=== PATIENT | female | born 1950 | race American Indian/Alaskan Native ===

== ENCOUNTER 2022-09-25 12:22 | Emergency (ER) | payer MEDICARE, MEDICAID, SELFPAY ==
--- NOTE | ~2022-09-25 | XR_ITS ---
EXAMINATION: XR RIBS, LEFT CLINICAL INFORMATION: Fall pain COMPARISON: None available. TECHNIQUE: 3 views of the left ribs and PA view of the chest were obtained. FINDINGS: Lungs are clear. No consolidation, pneumothorax, or pleural effusion. Calcification of the dorsal aorta. The cardiomediastinal silhouette and pulmonary vasculature are otherwise normal. Osseous structures are unremarkable. Ribs are intact. No fractures are identified. 5 mm rounded calcification overlies the posterior medial aspect of the proximal humerus in the soft tissues. This could reflect calcific tendinitis of the biceps tendon or loose body displaced distally into the biceps tendon sheath. XR/XR ribs LT min 3V w CXR1V IMPRESSION: 1. No rib fracture. 2. No acute disease in the chest. 3. Calcific tendinitis of the biceps tendon versus loose body displaced distally into the biceps tendon sheath.
[2022-09-25 12:42] VITALS: BP 145/73; PULSE 72; RESP 17; TEMP 35.9; O2SAT 98; BMI 28.6
--- NOTE | 2022-09-25 12:42 | ED_ITS ---
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 Patient states that last week she slipped on some spilled oil and hit her left side. Patient denies any head strike or loss of consciousness. Patient denies any anti-coagulant use. Patient denies any dizziness, lightheadedness, abdominal pain, nausea, vomiting, fever, chills, blurry vision, double vision, loss of vision, chest pain, difficulty breathing, shortness of breath, back pain, night sweats, pain with urination, increased urinary frequency, increased urinary urgency, blood in her urine or stool, syncope or a near syncopal episode, bowel incontinence, bladder incontinence, bowel retention, bladder retention, or any other complaints at this time. MD complaint: fall Onset (ago): week(s) Fall from: standing Fall witnessed: yes, by family Place fall occurred: home Loss of consciousness: none Prolonged down time: no Related Data Allergies Allergy/AdvReac Type Severity Reaction Status Date / Time aspirin Allergy Mild Itching Verified 09/25/22 12:46 Review of Systems Constitutional: Constitutional: Reports no additional constitutional complaints, Denies chills, Denies fever(s) and Denies night sweats Eyes: Eyes: Reports no additional eye complaints, Denies blurry vision, Denies change in vision, Denies diplopia, Denies eye discharge, Denies loss of vision and Denies eye pain ENT: Denies dizziness Cardiovascular: Cardiovascular: Reports no additional cardiovascular complaints, Denies chest pain, Denies lightheadedness, Denies Loss of Consciousness and Denies dyspnea Comments: left rib pain Respiratory: Respiratory: Reports no additional respiratory complaints and Denies dyspnea Gastrointestinal: Gastrointestinal: Reports no additional gastrointestinal complaints, Denies abdominal pain, Denies melena, Denies hematochezia, Denies change in bowel habits and Denies change in stool character Genitourinary: Genitourinary: Denies hematuria, Denies urinary frequency, Denies dysuria, Denies urinary incontinence, Denies urinary hesitancy and Denies urinary urgency Musculoskeletal: Musculoskeletal: Reports no additional musculoskeletal complaints, Denies numbness and Denies tingling Neurologic: Denies dizziness, Denies loss of vision, Denies numbness and Denies tingling Psychiatric: Psychiatric: Reports no additional psychiatric complaints Endocrine: Endocrine: Reports no additional endocrine complaints Hematologic/Lymphatic: Hematologic/Lymphatic: Reports no additional hematologic/lymphatic complaints Allergic/Immunologic: Allergic/Immunologic: Reports no additional allergic/immunologic complaints PMFSH Past Medical History Attestation statement: The following information was validated with the patient. Source: old records reviewed and nursing notes reviewed Physical Exam Vital Signs: Vital Signs: Last Vital Signs Temp 96.6 F L 09/25/22 12:42 Pulse 72 09/25/22 12:42 Resp 17 09/25/22 12:42 BP 145/73 H 09/25/22 12:42 Pulse Ox 98 09/25/22 12:42 O2 Del Method Room Air 09/25/22 12:42 BMI result Body Mass Index 28.6 Const: General: cooperative, no acute distress, alert and awake Nutritional Appearance: well nourished Orientation/consciousness: patient oriented x3 Limitations: no limitations HEENT: Head: Yes normal to inspection and Yes atraumatic Ears: hearing grossly normal bilaterally and external ears normal General nose exam: Normal external nose present, no nasal discharge noted and no epistaxis Face and sinus: Yes normal facial exam, No abrasion and No laceration Mouth: Normal oral and palatal mucosa present, no drooling and no muffled voice Eyes: General: appearance normal, both eyes and all related structures Periorbital: periorbital findings normal Eyelids: Yes eyelids normal Conjunctivae: conjunctivae normal Pupils: Equal, round and reactive pupils present EOM: EOMs intact bilaterally Neck: Neck: Yes normal visual inspection, Yes full ROM and Yes no lymphadenopathy Chest: Chest palpation & inspection: normal inspection of the chest Resp: Effort & Inspection: normal respiratory effort and able to speak in complete sentences Auscultation: clear to auscultation bilaterally Cardio: Rate: regular rate Rhythm: regular rhythm GI: Inspection: Yes normal to inspection Neuro: General: patient oriented x3 and moves all extremities Cranial nerves: Yes Equal, round and reactive pupils present Cognition (Neuro): normal cognition Motor exam (neuro): 5/5 motor strength present throughout Sensory Exam: Normal double simultaneous stimulation for sensation Coordination: [id number] test normal Extrem: General: Yes normal to inspection, Yes full ROM and Yes capillary refill normal Psych: Appearance: grossly normal Mental Status: mental status grossly normal Affect: normal affect Attitude: cooperative Thought process: Normal thought process present Thought content: Normal thought content present Insight: Good insight present (Psych) Course Course Course Narrative: This is a rapid medical exam. Deferred additional HPI, ROS, PE to primary provider. 72 yo female with history of HTN, DM, OP, arthritis, glaucoma here after a slip and fall 09/23 in [place]. Here c/o left rib pain worsened with movement and deep breathing. NO head strike or LOC. No AC therapy use. WIll check x-rays. VSS Medical Decision Making Medical Decision Making MDM Narrative: Patient is a 72 year old assigned female at with no reported medical history presenting to the emergency department today with left rib pain. Patient's physical exam was unremarkable. Patient's chest x-ray showed no acute process. I explained my physical exam findings as well as all test results to the patient. I answered all questions asked by the patient. Patient received IM Toradol which she stated helped her symptoms significantly. I stressed the importance of the patient taking her medication as prescribed. I stressed the importance of the patient following up with her primary care provider. I stressed the importance of the patient returning to the emergency department immediately if her symptoms were to worsen or if she were to develop any dizziness, shortness of breath, difficulty breathing, chest pain, blurry vision, loss of vision, nausea, vomiting, abdominal pain, fever, chills, back pain, or any other complaints. Patient verbalized agreement and understanding with this treatment plan and discharge. Differential Diagnosis Differential Diagnoses: The differential diagnosis associated with the presentation includes left sided rib contusion, fall Independent Interpretation I performed an independent interpretation of an: Plain X-Ray Interpretation: My interpretation is in agreement with the radiologist's impression of this imaging study. ----- EXAMINATION: XR RIBS, LEFT CLINICAL INFORMATION: Fall pain COMPARISON: None available. TECHNIQUE: 3 views of the left ribs and PA view of the chest were obtained. FINDINGS: Lungs are clear. No consolidation, pneumothorax, or pleural effusion. Calcification of the dorsal aorta. The cardiomediastinal silhouette and pulmonary vasculature are otherwise normal. Osseous structures are unremarkable. Ribs are intact. No fractures are identified. 5 mm rounded calcification overlies the posterior medial aspect of the proximal humerus in the soft tissues. This could reflect calcific tendinitis of the biceps tendon or loose body displaced distally into the biceps tendon sheath. XR/XR ribs LT min 3V w CXR1V IMPRESSION: 1.? No rib fracture. 2.? No acute disease in the chest. 3.? Calcific tendinitis of the biceps tendon versus loose body displaced distally into the biceps tendon sheath. Dictated By: Angel Freedman MD Signed By: Electronically signed by Angel Freedman MD 09/25/22 5113 Discharge Plan Discharge Clinical Impression: Rib contusion Patient Disposition: Home, Self-Care Instructions: Rib Contusion (ED) Additional Instructions: Please take DEEP breaths to avoid developing pneumonia. You do NOT have any broken ribs according to your chest x-ray. Follow up with your primary care pr ovider. Return to the emergency department immediately if your symptoms worsen or if you develop any dizziness, shortness of breath, difficulty breathing, chest pain, blurry vision, loss of vision, nausea, vomiting, abdominal pain, fever, chills, back pain, or any other complaints. Respire PROFUNDAMENTE para evitar desarrollar neumon?a. NO tiene costillas rotas seg?n segovia radiograf?a de t?rax. Jesús un seguimiento con segovia proveedor de atenci?n primaria. Regrese al departamento de emergencias de inmediato si dipti s?ntomas empeoran o si presenta mareos, falta de aire, dificultad para respirar, dolor de pecho, visi?n borrosa, p?rdida de la visi?n, n?useas, v?mitos, dolor abdominal, fiebre, escalofr?os, dolor de espalda o cualquier otras quejas. Referrals: Ebenezer Gilmore MD [Primary Care Provider] - Print Language: Cameroonian
[2022-09-25] MEDS: Ketorolac Tromethamine 15 MG/ML VIAL IM (15:38)
== END 2022-09-25 15:42 | disposition home or self-care (01) ==
PROVIDERS: Emergency Provider Emergency Medicine; PCP Internal Medicine
DX: S20.212A Contusion of left front wall of thorax, initial encounter (principal); W01.0XXA Fall on same level from slipping, tripping and stumbling without subsequent striking against object, initial encounter; Y93.9 Activity, unspecified; Y92.019 Unspecified place in single-family (private) house as the place of occurrence of the external cause; Y99.9 Unspecified external cause status
CPT/HCPCS: 71101; 96372; 99283; 99284; J1885

== ENCOUNTER 2023-07-21 14:50 | Emergency (ER) | payer MEDICARE, MEDICAID, SELFPAY ==
--- NOTE | ~2023-07-21 | CT_ITS ---
EXAMINATION: CT head/brain wo IV con, CT cervical spine wo IV con INDICATION INFORMATION: Reason for Exam fall with head strike, laceration COMPARISON: None TECHNIQUE: Separate noncontrast CT examinations of the head and cervical spine were performed. Coronal and sagittal images were created for each examination at the technologist workstation. This CT examination was performed using dose optimization techniques as appropriate, variously including the following: *Automated exposure control *Adjustment of mA and/or kV according to patient size (this includes techniques or standardized protocols for targeted exams where dose is matched to indication/reason for exam; i.e. extremities or head) *Use of iterative reconstruction technique DLP: 751.96 mGy-cm FINDINGS: Head: Mild generalized parenchymal volume loss. No territorial loss of brewer-white differentiation. 6 mm mineralized extra-axial nodule overlying the right parietal convexity, presumed small meningioma, without mass effect along the subjacent brain parenchyma. No mass lesion, significant mass effect, or herniation pattern. Lens replacements. Suggestion of slight fusiform prominence of the inferior rectus muscles with intramuscular fat deposition as well as fusiform soft tissue thickening of the medial rectus muscles which may be seen in the setting of thyroid eye disease and can be correlated with thyroid function tests. Mild mucoperiosteal disease of the maxillary sinuses. No mastoid effusion. Osseous structures are intact. Subcutaneous infiltration of the midline posterior scalp may reflect a posttraumatic contusion and can be correlated with physical examination. Cervical spine: No prevertebral soft tissue swelling. The craniocervical junction is intact. Vertebral body heights are normal without acute compression fracture or traumatic posterior element subluxation. Multilevel cervical spondylosis with disc osteophyte complexes, uncovertebral, and facet joint hypertrophy. Medialization of the right aryepiglottic fold with prominence of the right pyriform sinus can be correlated clinically for right vocal cord paresis. Asymmetric enlargement of the right thyroid lobe with suspected malignant nodule, noting artifact in this region limits assessment. Visualized lung apices are clear. The plaque of the aortic arch, great vessel origins, and carotid bifurcations. Normal appearance of the thyroid gland. CT/CT cervical spine wo IV con IMPRESSION: 1. No CT evidence of acute intracranial injury. Subcutaneous infiltration of the midline posterior scalp may reflect a posttraumatic contusion and can be correlated with physical examination. 2. No evidence of acute traumatic injury in the cervical spine. 3. Suggestion of slight fusiform prominence of the inferior rectus muscles with intramuscular fat deposition as well as fusiform soft tissue thickening of the medial rectus muscles. Findings may be seen in the setting of thyroid eye disease and can be correlated with thyroid function tests. 4. Medialization of the right aryepiglottic fold with prominence of the right pyriform sinus can be correlated clinically for right vocal cord paresis. 5. Asymmetric enlargement of the right thyroid lobe with suspected malignant nodule, noting artifact in this region limits assessment. Recommend further evaluation with thyroid ultrasound on a nonemergent basis.
[2023-07-21 15:25] VITALS: BP 207/74; PULSE 68; RESP 16; TEMP 36.2; O2SAT 99; BMI 28.3
--- NOTE | 2023-07-21 15:27 | ED.GENADULT ---
HPI - General Adult General Chief complaint: Fall Stated complaint: head inj laceration fall Time Seen by Provider: 07/21/23 18:06 Source: patient and family Mode of arrival: wheelchair Limitations: no limitations History of Present Illness HPI narrative: Patient is a 73-year-old female presenting to the emergency department with daughter complaining of laceration to back of head after a slip and fall. Patient had slippers on while cleaning, slipped and fell onto wood floor. Denies loss of consciousness, not anticoagulated. Minor laceration noted to occipital area. Patient reports mild pain. Unsure last Tdap. Daughter states patient did not take her blood pressure medications today as her blood pressure this morning was 114 systolic. complaint: head injury Onset (ago): hour(s) Location: head Severity: mild Quality: aching Associated symptoms: denies other symptoms Treatments prior to arrival: none Related Data Allergies Allergy/AdvReac Type Severity Reaction Status Date / Time aspirin Allergy Mild Itching Verified 07/21/23 15:29 Review of Systems Review of Systems: As per HPI. Yes all other systems are reviewed and are negative Constitutional: Constitutional: Reports as per HPI [facility] Social History Social History Advance Directives: No Advance Directives Information Provided: No Physical Exam ED Vital Signs: Vital Signs - 24 hr 07/21/23 15:25 07/21/23 17:30 Temperature 97.2 F 97.1 F Pulse Rate 68 65 Respiratory Rate 16 16 Blood Pressure 207/74 H 183/76 H Pulse Oximetry 99 99 Oxygen Delivery Method Room Air Room Air BMI result Body Mass Index 28.3 Vital signs have been reviewed and appear to be correct. Blood pressure elevated. Heart rate normal. Respiratory rate normal. Temperature normal. Oxygen saturation normal. Const General: cooperative, healthy appearing and no acute distress Orientation/consciousness: oriented to person, oriented to place, oriented to time and patient oriented x3 Limitations: no limitations HENMT Head: Yes normocephalic, No Medina's sign, Yes contusion (occiput), Yes laceration (1.5cm linear laceration to occiput), No raccoon eyes and No periorbital ecchymosis Ears: external ears normal General nose exam: Normal external nose present Face and sinus: Yes face symmetric Mouth: oropharynx normal and moist mucous membranes Throat: Yes uvula midline Eyes Pupils: Equal, round and reactive pupils present Neck Neck: Yes normal visual inspection and Yes supple Resp Effort & Inspection: normal respiratory effort and able to speak in complete sentences Auscultation: clear to auscultation bilaterally Cardio Rate: regular rate Rhythm: regular rhythm Heart sounds: S1 normal heart sound present and S2 normal heart sound present GI Palpation (GI): Soft to palpation and nontender Auscultation: normoactive bowel sounds General: Yes no CVA tenderness Back/Spine/Pelvis Back: no CVA tenderness Skin General skin exam: elasticity normal and turgor normal Neuro General: oriented to person, oriented to place, oriented to time, patient oriented x3, moves all extremities, no focal motor deficits and CN's II-XI intact bilaterally Cranial nerves: Yes Equal, round and reactive pupils present Cognition (Neuro): normal cognition Extrem General: Yes full ROM, Yes no pedal edema and Yes no calf tenderness Psych Mental Status: mental status grossly normal Affect: normal affect Thought process: Normal thought process present Course Course Course Narrative: This is a rapid medical exam: Additional HPI, ROS, PE not included below will be deferred to primary provider. Patient is a 73-year-old female presenting to the emergency department with daughter complaining of laceration to back of head after a slip and fall. Patient had slippers on while cleaning, slipped and fell onto wood floor. Denies loss of consciousness, not anticoagulated. Minor laceration noted to occipital area. Patient reports mild pain. Unsure last Tdap. Plan: CT head and neck, will update Tdap Medications Administered Discontinued Medications Generic Name Dose Route Start Last Admin Trade Name Lena PRN Reason Stop Dose Admin Amlodipine Besylate 10 mg 07/21/23 18:15 07/21/23 18:36 Amlodipine Besylate 10 Mg Tablet PO 07/21/23 18:16 10 mg ONCE ONE Administration Protocol Diphtheria/Tetanus/Acell Pertussis 0.5 ml 07/21/23 15:26 07/21/23 17:53 Diphth,Pertus(Acell),Tet Adult 0.5 Ml Syringe IM 07/21/23 15:27 0.5 ml .ONCE ONE Administration Lisinopril 5 mg 07/21/23 18:15 07/21/23 18:36 Lisinopril 5 Mg Tablet PO 07/21/23 18:16 5 mg ONCE ONE Administration Protocol Procedures Laceration Laceration 1: Site: scalp Size (cm): 1 Description: linear Depth: simple, single layer Amount of anesthesia used (mL): 0 Pre-repair: wound explored, irrigated extensively and deep structures intact Skin layer closed with: other (ginette, 3) Medical Decision Making Medical Decision Making [facility] Narrative: Patient is a 73-year-old female presenting to the emergency department with daughter complaining of laceration to back of head after a slip and fall. On exam patient is awake, A+Ox3, hypertensive, VS otherwise WNL, afebrile, normal neurological exam without focal deficits, physical exam findings as above. Given reported symptoms and physical exam findings, initial differential includes ICH, skull or cervical vertebral fracture, contusion. CT notable for no acute intracranial injury, posterior scalp contusion, no c-spine injury. Incidental finding of thyroid nodule. My interpretation is in agreement with the radiologist's interpretation. All results discussed with patient and daughter and all questions answered. Laceration repaired as per procedure note. Patient medicated with her regularly prescribed blood pressure medications in the ED as she was noted to be hypertensive and stated she did not take them at home this morning. Strict return precautions discussed with patient and daughter. Advised patient to have ginette removed in 7-10 days. Instructed patient to follow-up with her primary care provider. Patient and daughter verbalized understanding of and agreement with plan. Differential Diagnosis Differential Diagnoses: The differential diagnosis associated with the presentation includes As per MDM. Admission/Observation Consideration of admission/observation: Escalation of care including admission/observation considered Patient would have been admitted to the hospital had their work up had any findings where hospital admission was appropriate and their clinical presentation warranted hospital admission. Independent Interpretation I performed an independent interpretation of an: CT Scan Interpretation: no acute intracranial injury, posterior scalp contusion, no c-spine injury. Incidental finding of thyroid nodule. Radiology Impression Discussion of test interpretation with radiology: I have reviewed the radiologist's reading. Radiologist Impression: CT/CT head/brain wo IV con IMPRESSION: 1. No CT evidence of acute intracranial injury. Subcutaneous infiltration of the midline posterior scalp may reflect a posttraumatic contusion and can be correlated with physical examination. 2. No evidence of acute traumatic injury in the cervical spine. 3. Suggestion of slight fusiform prominence of the inferior rectus muscles with intramuscular fat deposition as well as fusiform soft tissue thickening of the medial rectus muscles. Findings may be seen in the setting of thyroid eye disease and can be correlated with thyroid function tests. 4. Medialization of the right aryepiglottic fold with prominence of the right pyriform sinus can be correlated clinically for right vocal cord paresis. 5. Asymmetric enlargement of the right thyroid lobe with suspected malignant nodule, noting artifact in this region limits assessment. Recommend further evaluation with thyroid ultrasound on a nonemergent basis. Independent Historian Clinical information obtained from an independent historian. History obtained from or confirmed by: Other (Daughter) External Record Review External record reviewed: Inpatient record, Office record and Outpatient record Discharge Plan Discharge Clinical Impression: Contusion of head, Laceration of head Patient Disposition: Home, Self-Care Instructions: Contusion in Adults (ED), Staple Care (ED), Head Laceration (ED) Additional Instructions: You have been evaluated in the emergency department today for head injury. Your CT scans did not show signs of bleed or fractures in your head or neck. Your laceration was repaired with ginette, these will need to be removed in 7-10 days. You were given your blood pressure medications today in the emergency department, do not take your blood pressure medications when you get home today. We recommend you take 600 mg ibuprofen every 6 hours or Tylenol 650 mg every 6 hours as needed for pain. If needed, you can alternate these medications so that you take 1 medication every 3 hours. For instance, at noon take ibuprofen, then at 3:00 p.m. take Tylenol, then at 6:00 p.m. take ibuprofen. Please schedule an appointment with for follow-up with your primary care provider as soon as possible. Return to the emergency department if you experience worsening or uncontrolled pain, vision changes, recurrent vomiting, difficulty with normal activities, abnormal behavior, difficulty walking, numbness, weakness, or any other concerning symptoms.
[2023-07-21 17:30] VITALS: BP 183/76; PULSE 65; RESP 16; TEMP 36.2; O2SAT 99
[2023-07-21] MEDS: Diphth,Pertus(ACell),Tet Adult 0.5 ML SYRINGE IM (17:53)
[2023-07-21] MEDS: amLODIPine Besylate 10 MG TABLET PO (18:36)
[2023-07-21] MEDS: lisinopriL 5 MG TABLET PO (18:36)
[2023-07-21 18:59] VITALS: BP 196/82; PULSE 65; RESP 16; TEMP 36.4
== END 2023-07-21 19:00 | disposition home or self-care (01) ==
PROVIDERS: Emergency Provider Internal Medicine; PCP Internal Medicine
DX: S01.01XA Laceration without foreign body of scalp, initial encounter (principal); S00.03XA Contusion of scalp, initial encounter; W01.0XXA Fall on same level from slipping, tripping and stumbling without subsequent striking against object, initial encounter; Y93.E5 Activity, floor mopping and cleaning; Y92.009 Unspecified place in unspecified non-institutional (private) residence as the place of occurrence of the external cause; Y99.9 Unspecified external cause status; Z23 Encounter for immunization
CPT/HCPCS: 12001; 70450; 72125; 90471; 90715; 99283; 99284

== ENCOUNTER 2023-07-28 12:08 | Emergency (ER) | payer MEDICARE, MEDICAID, SELFPAY ==
[2023-07-28 12:17] VITALS: BP 164/63; PULSE 74; RESP 16; TEMP 36.8; O2SAT 98; BMI 29.8
--- NOTE | 2023-07-28 12:22 | ED.WOUNDLAC ---
HPI - Wound/Laceration General Chief Complaint: Wound/Laceration Stated Complaint: cut in back of head Time Seen by Provider: 07/28/23 12:20 Source: patient, family (Daughter) and clinical education coordinator (Maltese) Mode of arrival: ambulatory Limitations: language barrier History of Present Illness HPI narrative: 73-year-old female presents to the ED today requesting removal of ginette. Patient was evaluated in our ED approximately 7 days ago. She presented with a laceration to the back of her head following a slip and fall occurring prior to arrival. States that she was cleaning and her slippers slipped causing her to fall onto the hardwood floor. She did not lose consciousness. No thinners. The small laceration to the back of her head was closed with 3 ginette. Tetanus vaccination was updated at that time. She presents today requesting removal of ginette. Denies any complications. Denies pain. Denies drainage or bleeding from the area. Denies confusion, nausea vomiting, fever, chills. cement breaker utilized throughout visit to communicate with patient. Related Data Allergies Allergy/AdvReac Type Severity Reaction Status Date / Time aspirin Allergy Mild Itching Verified 07/28/23 12:16 Review of Systems Review of Systems: Constitutional: No fever, chills, fatigue, night sweats, weight changes ENT/Mouth: No ear pain, hearing loss, nasal congestion, sinus pain, rhinorrhea, sore throat Eyes: No eye pain, swelling, redness, vision changes, discharge Cardio: No chest pain, palpitations, JANG, orthopnea, peripheral edema Pulm: No SOB, cough, sputum, wheezing, dyspnea, hemoptysis GI: No nausea, vomiting, hematemesis, abdominal pain, diarrhea, constipation, hematochezia, melena : No irregular bleeding, dysuria, frequency, urgency, hesitancy, hematuria, flank pain, urinary flow changes, urinary incontinence or retention MSK: No back pain, neck pain, joint pain, myalgias Skin: No lesions, rashes, +lac w/ ginette to posterior head Neuro: No weakness, numbness, paresthesias, LOC, dizziness, headache Psych: No anxiety/panic, depression, SI/HI, AH/VH All other systems reviewed and are negative. [facility] Past Medical History Attestation statement: The following information was validated with the patient. Source: old records reviewed and nursing notes reviewed Social History Social History Advance Directives: No Physical Exam Vital Signs: Vital Signs: Last Vital Signs Temp 98.3 F 07/28/23 12:32 Pulse 74 07/28/23 12:32 Resp 16 07/28/23 12:32 BP 164/63 H 07/28/23 12:32 Pulse Ox 98 07/28/23 12:32 O2 Del Method Room Air 07/28/23 12:32 BMI result Body Mass Index 29.8 Patient hypertensive, vitals otherwise WNL. Afebrile. Const: General: cooperative, healthy appearing, comfortable and no acute distress Orientation/consciousness: patient oriented x3 Limitations: no limitations HEENT: Other: + 1.5 cm linear laceration noted to posterior head w/ [address] Clean, dry, intact. no surrounding erythema. No palpable skull fracture. No raccoon eyes or mitchell sign. Head: Yes No palpable skull fracture present Ears: hearing grossly normal bilaterally, external ears normal, TM's normal bilaterally, EAC's normal, mastoids normal and no periauricular adenopathy General nose exam: Normal external nose present and Normal septum present Eyes: General: appearance normal, both eyes and all related structures Conjunctivae: conjunctivae normal Sclerae: sclerae normal Pupils: Equal, round and reactive pupils present Neck: Other: + no C-spine tenderness or step-off deformity Neck: Yes normal visual inspection, Yes full ROM and Yes no meningeal signs Resp: Effort & Inspection: normal respiratory effort Auscultation: clear to auscultation bilaterally Cardio: Rate: regular rate Rhythm: regular rhythm Skin: Other: + please refer to above General skin exam: no rashes or lesions noted Neuro: General: patient oriented x3, gait normal, no meningeal signs and no focal motor deficits Cranial nerves: Yes Equal, round and reactive pupils present Gait exam (Neuro): Normal gait present Course Course Course Narrative: 1223- 3 ginette removed from posterior head. Patient tolerated well. No complications. No bleeding or discharge. Laceration healing well. Patient has remained stable throughout ED visit today. Discussed worrisome signs and symptoms and when to return to the ED. All questions answered at this time. Patient is agreeable with disposition and stable for discharge. Medical Decision Making Medical Decision Making MDM Narrative: 73-year-old female presents to the ED today requesting removal of ginette. Patient was evaluated in our ED approximately 7 days ago. Patient hypertensive, vitals otherwise WNL. Afebrile. Nontoxic appearing and in no acute distress. A&O x3. 1.5 cm healing linear laceration to posterior head with [address] Clean dry and intact. no surrounding erythema. NO mitchell sign or racoon eyes. no palpable skull fracture. no c spine tenderness or step off deformity. Exam nonfocal. Ambulating w/ steady gait. Differential diagnosis includes stapled laceration. unlikely ICH, cellulitis, abscess, infection. Plan for staple removal and discharge. Differential Diagnosis Differential Diagnoses: The differential diagnosis associated with the presentation includes As above Independent Interpretation I performed an independent interpretation of an: CT Scan Interpretation: I personally reviewed head and C-spine CT obtained on 07/21/2023 and agree with radiologist's interpretation. No obvious intracranial hemorrhage, skull fracture or C-spine fracture. Radiology Impression Discussion of test interpretation with radiology: I have reviewed the radiologist's reading. Radiologist Impression: CT head/brain/ c spine wo IV con IMPRESSION: 1. No CT evidence of acute intracranial injury. Subcutaneous infiltration of the midline posterior scalp may reflect a posttraumatic contusion and can be correlated with physical examination. 2. No evidence of acute traumatic injury in the cervical spine. 3. Suggestion of slight fusiform prominence of the inferior rectus muscles with intramuscular fat deposition as well as fusiform soft tissue thickening of the medial rectus muscles. Findings may be seen in the setting of thyroid eye disease and can be correlated with thyroid function tests. 4. Medialization of the right aryepiglottic fold with prominence of the right pyriform sinus can be correlated clinically for right vocal cord paresis. 5. Asymmetric enlargement of the right thyroid lobe with suspected malignant nodule, noting artifact in this region limits assessment. Recommend further evaluation with thyroid ultrasound on a nonemergent basis. Independent Historian Clinical information obtained from an independent historian. History obtained from or confirmed by: Other (daughter) External Record Review External record reviewed: Inpatient record Prescription Management I considered prescription management with: Pain Medication Social Determinants Patient?s care significantly limited by Social Determinants of Health including: Other Social Determinant of Health Discharge Plan Discharge Clinical Impression: Encounter for removal of ginette, Laceration of head, Contusion of head Patient Disposition: Home, Self-Care Additional Instructions: 3 ginette were removed from your head today. Follow up with your PCP as needed. Please return with new or worsening symptoms as discussed. In the case of an emergency call 911. Interventions: ED Discharge Assessment Last Done: 07/28/23 12:32 Discharge Date/Time: 07/28/23 12:33
[2023-07-28 12:32] VITALS: BP 164/63; PULSE 74; RESP 16; TEMP 36.8; O2SAT 98
== END 2023-07-28 12:33 | disposition home or self-care (01) ==
PROVIDERS: Emergency Provider Emergency Medicine; PCP Internal Medicine
DX: S01.01XA Laceration without foreign body of scalp, initial encounter (principal); W01.10XA Fall on same level from slipping, tripping and stumbling with subsequent striking against unspecified object, initial encounter; Y93.9 Activity, unspecified; Y92.9 Unspecified place or not applicable; Y99.8 Other external cause status; Z48.02 Encounter for removal of sutures
CPT/HCPCS: 99282; 99283

== ENCOUNTER 2024-05-15 10:28 | Emergency (ER) | payer MEDICARE, MEDICAID, SELFPAY ==
--- NOTE | ~2024-05-15 | CT_ITS ---
EXAMINATION: CT HEAD WITHOUT CONTRAST CLINICAL INFORMATION: dizziness COMPARISON: CT dated July 21, 2023 TECHNIQUE: Contiguous axial imaging was performed from the skull base to vertex without intravenous administration of contrast. This CT examination was performed using dose optimization techniques as appropriate, variously including the following: *Automated exposure control *Adjustment of mA and/or kV according to patient size (this includes techniques or standardized protocols for targeted exams where dose is matched to indication/reason for exam; i.e. extremities or head) *Use of iterative reconstruction technique DLP: 484 mGy-cm FINDINGS: No acute intracranial hemorrhage, mass effect, midline shift, hydrocephalus or herniation. Sky-white matter differentiation is normal. Posterior cranial fossa contents demonstrated no acute intracranial hemorrhage or mass effect. 5 mm extra-axial calcification in the right frontoparietal convexity. 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 Craniocervical junction is intact and normal. Bony calvarium is intact. Skull base is intact. Dextroconvex nasal septum deviation. Mucosal thickening, maxillary sinuses. Tympanic cavities and mastoid cells are aerated. CT/CT head/brain wo IV con IMPRESSION: No acute intracranial hemorrhage or acute brain abnormality by CT. 5 mm extra-axial calcification right frontoparietal convexity. Small meningioma should be considered. Electronically signed by: Russell Verdin MD 05/15/2024 12:48 PM [facility]
[2024-05-15 11:25] VITALS: BP 171/71; PULSE 89; RESP 18; TEMP 36.7; O2SAT 99; BMI 26.2
--- NOTE | 2024-05-15 11:29 | ED.GENADULT ---
HPI - General Adult General Chief complaint: Weakness Stated complaint: body pain Source: patient, family, RN notes reviewed, old records reviewed and lime sludge mixer Mode of arrival: ambulatory Limitations: language barrier History of Present Illness ED Provider: Andie DENT narrative: Patient is a 74-year-old female with history of DM, HTN presenting to the emergency department with complaint of lower back pain, lightheadedness, nausea and one episode of vomiting this morning. Symptoms began yesterday. Denies fever. Denies any known sick contacts. Denies chest pain or palpitations. Denies abdominal pain, diarrhea, constipation. Denies urinary symptoms. MD complaint: body aches, nausea Onset (ago): day(s) Treatments prior to arrival: none Related Data Allergies Allergy/AdvReac Type Severity Reaction Status Date / Time aspirin Allergy Mild Itching Verified 05/15/24 11:27 Review of Systems Review of Systems: As per HPI Yes all other systems are reviewed and are negative Constitutional: Constitutional: Reports as per HPI Physical Exam ED Vital Signs: Vital Signs - 24 hr 05/15/24 11:25 05/15/24 14:57 Temperature 98.0 F 99.1 F Pulse Rate 89 85 Respiratory Rate 18 18 Blood Pressure 171/71 H 142/59 H Pulse Oximetry 99 97 Oxygen Delivery Method Room Air Room Air BMI result Body Mass Index 26.2 Vital signs have been reviewed and appear to be correct. Blood pressure normal. Heart rate normal. Respiratory rate normal. Temperature normal. Oxygen saturation normal. Const General: cooperative, healthy appearing and no acute distress Orientation/consciousness: oriented to person, oriented to place, oriented to time and patient oriented x3 Limitations: no limitations [facility] Head: Yes normocephalic and Yes atraumatic Ears: external ears normal General nose exam: Normal external nose present Face and sinus: Yes face symmetric Mouth: oropharynx normal and moist mucous membranes Throat: Yes uvula midline Eyes Pupils: Equal, round and reactive pupils present Neck Neck: Yes normal visual inspection and Yes supple Resp Effort & Inspection: normal respiratory effort and able to speak in complete sentences Auscultation: clear to auscultation bilaterally Cardio Rate: regular rate Rhythm: regular rhythm Heart sounds: S1 normal heart sound present and S2 normal heart sound present GI Palpation (GI): Soft to palpation and nontender Auscultation: normoactive bowel sounds General: Yes no CVA tenderness Back/Spine/Pelvis Back: no CVA tenderness Skin General skin exam: elasticity normal and turgor normal Neuro General: oriented to person, oriented to place, oriented to time, patient oriented x3, moves all extremities, no focal motor deficits and CN's II-XI intact bilaterally Cranial nerves: Yes Equal, round and reactive pupils present Cognition (Neuro): normal cognition Extrem General: Yes full ROM, Yes no pedal edema and Yes no calf tenderness Psych Mental Status: mental status grossly normal Affect: normal affect Thought process: Normal thought process present Course Course Course Narrative: This is a rapid medical exam performed by Gatito Chaves NP: Additional HPI, ROS, PE not included below will be deferred to primary provider. Patient is a 74-year-old Portuguese speaking female presenting with complaint of dizziness, low back pain, nausea and vomiting since this morning. A+Ox3, in no acute distress, ambulating with steady gait. Plan: EKG, CT head, labs, UA, viral serology Medical Decision Making Medical Decision Making [facility] Narrative: Patient is a 74-year-old female with history of DM, HTN presenting to the emergency department with complaint of lower back pain, lightheadedness, nausea and one episode of vomiting this morning. On exam patient is awake, A+Ox3, VS WNL, afebrile, normal neurological exam without focal deficits, physical exam findings as above. Given reported symptoms and physical exam findings, initial differential includes but is not limited to viral illness, covid, flu, rsv, electrolyte abnormality, UTI. Labs notable for no leukocytosis, no anemia, elevated glucose without anion gap. Urinalysis notable for 1+ leukocytes, negative nitrites, trace bacteria. No urinary sxs, will wait for culture prior to treatment for UTI. Viral serology positive for Covid. CT head notable for no acute ICH or other acute abnormality. 5mm calcification noted, possible small hemangioma. My interpretation is in agreement with the radiologist's interpretation. Results discussed with patient and all questions answered. Discussed isolation/masking, follow up with PCP, return precautions. Patient verbalized understanding of and agreement with plan. In-person dance studio manager was utilized for all interactions, assessments, and discussions. Differential Diagnosis Differential Diagnoses: The differential diagnosis associated with the presentation includes as per [facility] Admission/Observation Consideration of admission/observation: Escalation of care including admission/observation considered Patient would have been admitted to the hospital had their work up had any findings where hospital admission was appropriate and their clinical presentation warranted hospital admission. Lab Data [facility] Lab Attestation statement: I reviewed the patient's lab results. as per [facility] 05/15/24 12:21 05/15/24 12:21 Labs: Lab Results 05/15/24 05/15/24 Range/Units 12:21 13:44 WBC 8.2 (4.8-10.8) X10*3/uL RBC 5.19 (4.20-5.50) X10*6/uL Hgb 14.5 (12.0-16.0) g/dl Hct 42.6 (37.0-47.0) % MCV 82.1 (80.0-98.0) fL MCH 27.9 (27.0-33.0) pg MCHC 34.0 (31.0-35.0) g/dl RDW 12.2 (11.0-16.0) % Plt Count 251 (160-400) X10*3/uL MPV 10.4 (9.4-12.3) fL Immature Gran % (Auto) 0.4 (0.0-0.4) % Neut % (Auto) 79.2 H (45-73) % Lymph % (Auto) 9.7 L (20-40) % [place] % (Auto) 10.0 (2-11) % Eos % (Auto) 0.2 (0-4) % Baso % (Auto) 0.5 (0-2) % Lymph # (Auto) 0.8 L (1.2-4.9) X10*3/uL [place] # (Auto) 0.8 (0.1-1.2) X10*3/uL Eos # (Auto) 0.0 (0.0-0.4) X10*3/uL Baso # (Auto) 0.0 (0.0-0.2) X10*3/uL Abs Immat Gran (auto) 0.03 (0.00-0.03) X10*3/uL Absolute Neuts (auto) 6.5 (2.0-8.3) x10*3/uL Absolute Nucleated RBC 0.000 (0.0-0.012) X10*3/uL Nucleated RBC % (auto) 0.0 (0.0-0.2) /100WBC PT 12.4 (10.9-12.4) SEC INR 1.1 (0.9-1.1) Sodium 139 (135-145) mmol/L Potassium 3.8 (3.3-5.1) mmol/L Chloride 104 (96-108) mmol/L Carbon Dioxide 27 (22-29) mmol/L Anion Gap 12 (12-20) BUN 14 (9-16) mg/dL Creatinine 0.63 (0.5-1.4) mg/dL Estim Creat Clear Calc 51.5 Estimated GFR > 60 Random Glucose 206 H (60-115) mg/dL Calcium 9.7 (8.4-10.2) mg/dL Total Bilirubin 0.6 (0.0-1.0) mg/dL AST 27 (5-31) U/L ALT 43 H (0-31) U/L Alkaline Phosphatase 73 (39-117) U/L Troponin I High Sens < 2.7 (<3.5-17.0) ng/L Total Protein 7.8 (6.5-8.0) g/dL Albumin 4.4 (3.5-5.0) g/dL Urine Color Yellow Urine Appearance Clear Urine pH 5.5 (5.0-9.0) Ur Specific [place] 1.020 (1.005-1.025) Urine Protein Negative (Neg-Trace) mg/dL Urine Glucose (UA) Negative (Negative) mg/dL Urine Ketones Negative (Negative) mg/dL Urine Blood Negative (Negative) Urine Nitrite Negative (Negative) Ur Leukocyte Esterase Small (1+) H (Negative) Urine RBC 0-2 (0-2) /HPF Urine WBC 0-5 (0-5) /HPF Ur Squamous Epith Cells 6-10 (0-2) /HPF Urine Bacteria Trace (None Seen) Hyaline Casts 0-2 (0-2) /LPF Influenza Type A (PCR) NEGATIVE (Negative) Influenza Type B (PCR) NEGATIVE (Negative) RSV RNA Qual (PCR) NEGATIVE (Negative) SARS-CoV-2 RNA (RT-PCR) POSITIVE A (Negative) Independent Interpretation I performed an independent interpretation of an: CT Scan Interpretation: CT head notable for no acute ICH or other acute abnormality. 5mm calcification noted, possible small hemangioma. Radiology Impression Discussion of test interpretation with radiology: I have reviewed the radiologist's reading. Radiologist Impression: CT/CT head/brain wo IV con IMPRESSION: No acute intracranial hemorrhage or acute brain abnormality by CT. 5 mm extra-axial calcification right frontoparietal convexity. Small meningioma should be considered. External Record Review External record reviewed: Inpatient record, Office record and Outpatient record Discharge Plan Discharge Clinical Impression: COVID-19 Patient Disposition: Home, Self-Care Instructions: COVID-19 (Coronavirus Disease 2019) (ED) Additional Instructions: You were evaluated in the emergency department today for body aches, nausea, vomiting. Your COVID test was resulted as positive. You should continue to isolate at home for another 4 days. You should continue to wear mask for 5 days after that. Covid is a viral illness which will resolve on it's own over time. Follow up with your primary care provider as needed. Return to the emergency department with worsening shortness of breath, chest pain, fever that does not improve with Tylenol or ibuprofen, persistent vomiting, or any other concerning symptoms. You should follow-up with your primary care provider. Discuss your CT head results with your primary care provider. CT/CT head/brain wo IV con IMPRESSION: No acute intracranial hemorrhage or acute brain abnormality by CT. 5 mm extra-axial calcification right frontoparietal convexity. Small meningioma should be considered. Print Language: Portuguese
--- NOTE | 2024-05-15 11:30 | ECG_ITS ---
Test Reason : DIZZY Blood Pressure : */* mmHG Vent. Rate : 58 BPM Atrial Rate : 58 BPM P-R Int : 154 ms QRS Dur : 80 ms QT Int : 442 ms P-R-T Axes : 46 2 30 degrees QTcB Int : 433 ms Sinus bradycardia with sinus arrhythmia Anterior infarct , age undetermined Abnormal ECG No previous ECGs available Referred By: Marbella Chaves Electronically Signed By: NILSON MARTIN
[2024-05-15 12:27] LABS: MANUAL DIFF FLAG NO
[2024-05-15 12:28] LABS: Basophils Percent Auto 0.5 % (0-2); Eosinophils Percent Auto 0.2 % (0-4); Hematocrit 42.6 % (37.0-47.0); Hemoglobin 14.5 g/dl (12.0-16.0); Imm Gran Abs Auto 0.03 X10*3/uL (0.00-0.03); Imm Gran Pct Auto 0.4 % (0.0-0.4); Lymphocytes Absolute Auto 0.8 X10*3/uL (1.2-4.9); Lymphocytes Percent Auto 9.7 % (20-40); Mean Corpuscular Hemoglobin 27.9 pg (27.0-33.0); Mean Corpuscular Volume 82.1 fL (80.0-98.0); Mean Platelet Volume 10.4 fL (9.4-12.3); Monocytes Absolute Auto 0.8 X10*3/uL (0.1-1.2); Neutrophils Absolute Auto 6.5 x10*3/uL (2.0-8.3); Neutrophils Percent Auto 79.2 % (45-73); Platelet Count 251 X10*3/uL (160-400); Red Blood Count 5.19 X10*6/uL (4.20-5.50); Red Cell Distribution Width 12.2 % (11.0-16.0); White Blood Count 8.2 X10*3/uL (4.8-10.8)
[2024-05-15 12:33] LABS: INTERNATIONAL NORM RATIO 1.1 (0.9-1.1); Prothrombin Time 12.4 SEC (10.9-12.4)
[2024-05-15 12:49] LABS: Alanine Aminotransferase 43 U/L (0-31); Albumin Level 4.4 g/dL (3.5-5.0); Alkaline Phosphatase 73 U/L (39-117); Anion Gap 12 (12-20); Aspartate Amino Transferase 27 U/L (5-31); Bilirubin Total 0.6 mg/dL (0.0-1.0); Blood Urea Nitrogen 14 mg/dL (9-16); Calcium 9.7 mg/dL (8.4-10.2); Carbon Dioxide 27 mmol/L (22-29); Chloride 104 mmol/L (96-108); Creatinine Clr Calc Pharmacy 51.5; Estimated Glomerular Filt Rate > 60; Glucose Random 206 mg/dL (60-115); Potassium 3.8 mmol/L (3.3-5.1); Sodium 139 mmol/L (135-145); Total Protein 7.8 g/dL (6.5-8.0)
[2024-05-15 12:56] LABS: Troponin-I High Sensitivity < 2.7 ng/L (<3.5-17.0)
[2024-05-15 13:08] LABS: Influenza A PCR NEGATIVE (Negative); Influenza B PCR NEGATIVE (Negative); Resp Syncy Virus RNA Qual PCR NEGATIVE (Negative); SARS COV2 PCR INHOUSE POSITIVE (Negative)
[2024-05-15 14:09] LABS: Appearance Urine Clear; Color Urine Yellow; Glucose Urine UA Negative (Negative); Leukocyte Esterase Urine Small (1+) (Negative); Nitrite Urine Negative (Negative); PH 5.5 (5.0-9.0); UMIC TRIGGER UACC YES; Urine Blood Negative (Negative); Urine Ketones Negative (Negative); Urine Protein Negative (Neg-Trace)
[2024-05-15 14:23] LABS: Bacteria Urine Trace (None Seen); Hyaline Casts Urine 0-2 /LPF (0-2); RBC Urine 0-2 /HPF (0-2); UACC Culture Trigger YES; WBC Urine 0-5 /HPF (0-5)
[2024-05-15 14:57] VITALS: BP 142/59; PULSE 85; RESP 18; TEMP 37.3; O2SAT 97
[2024-05-15 15:21] VITALS: BP 142/59; PULSE 85; RESP 18; TEMP 37.3; O2SAT 97
== END 2024-05-15 15:25 | disposition home or self-care (01) ==
PROVIDERS: Registered Nurse Emergency; Emergency Provider Emergency Medicine; PCP Internal Medicine
DX: U07.1 COVID-19 (principal); R42 Dizziness and giddiness; M54.50 Low back pain, unspecified; R00.1 Bradycardia, unspecified; E11.9 Type 2 diabetes mellitus without complications; I10 Essential (primary) hypertension; R11.2 Nausea with vomiting, unspecified
CPT/HCPCS: 0241U; 70450; 80053; 81001; 84484; 85025; 85610; 87086; 93005; 99284

== ENCOUNTER → 2024-05-15 11:30 | Outpatient (BNV) | payer MEDICARE, MEDICAID, SELFPAY | PROVIDERS: Emergency Provider Emergency Medicine; PCP Internal Medicine; Visit Provider Internal Medicine | DX: R00.1 Bradycardia, unspecified (principal) | CPT/HCPCS: 93010 ==

== ENCOUNTER → 2024-05-15 11:30 | Outpatient (BNV) | payer MEDICARE, MEDICAID, SELFPAY | PROVIDERS: PCP Internal Medicine; Visit Provider Radiology Diagnostic Radiology | DX: R42 Dizziness and giddiness (principal) | CPT/HCPCS: 70450 ==